=== PATIENT | female | born 1965 | race Caucasian/White ===

== ENCOUNTER 2018-02-19 21:02 | Inpatient (IN) | payer SELFPAY ==
[~2018-02-19] VITALS: Ht 167.6 cm; Wt 81.3 kg
[~2018-02-19 21:02] MED LIST: FAMOTIDINE (10MG/ML) 2ML VL IV ONE; methylPREDNISolone SOD SUCC 125 MG/2 ML VL ONE
[2018-02-19] MEDS ORDERED: SUCCINYLCHOLINE CHLORIDE 20 MG/ML 10ML VIAL IV ONE ×2 (21:10→21:15)
[2018-02-19] MEDS ORDERED: ETOMIDATE (2MG/ML) 20ML VIAL IV ONE ×2 (21:10→21:15)
[2018-02-19] MEDS ORDERED: FAMOTIDINE (10MG/ML) 2ML VL IV ONE (21:15)
[2018-02-19] MEDS ORDERED: methylPREDNISolone SOD SUCC 125 MG/2 ML VL IV ONE (21:15)
[2018-02-19] MEDS: MIDAZOLAM DRIP 50 mg/50mL 50 ML IV ONE ×2 (21:17→21:27)
[2018-02-19] MEDS: MIDAZOLAM DRIP 50 mg/50mL 50 ML IV SCH (21:18)
[2018-02-19 21:20] VITALS: BP 126/71
[2018-02-19] MEDS ORDERED: EPINEPHrine HCL 1 MG/1 ML AMP SC ONE (21:30)
[2018-02-19 22:04] LABS: Lactic Acid w/Reflex 7.5 mmol/L (0.4-2.0)
[2018-02-19 22:17] LABS: Hematocrit 40.6 % (36.0-46.0); Hemoglobin 13.5 g/dL (12.2-16.2); Mean Corpuscular Hemoglobin 32.1 pg (28.0-32.0); Mean Corpuscular Hgb Conc. 33.3 g/dL (32.0-36.0); Mean Corpuscular Volume 96.4 fL (80.0-100.0); Platelet Count (auto) 267 10^3/uL (140-450); Red Blood Cells 4.22 10^6/uL (4.0-5.20); Red Cell Distribution Width 13.5 % (11.8-14.3); White Blood Cell 12.7 10^3/uL (4.4-10.8)
[2018-02-19 22:20] VITALS: BP 90/52
[2018-02-19 22:24] LABS: INR 0.94 (0.9-1.15); Partial Thromboplastin Time 24.4 sec (23.78-33.04); Prothrombin Time 10.1 sec (9.27-12.13)
[2018-02-19 22:26] LABS: Alcohol, Urine < 3.0 mg/dL (0-5); Amphetamine Screen, Urine NEGATIVE (NEGATIVE); Barbiturate Scree,Urine NEGATIVE (NEGATIVE); Benzodiazephine Screen, Urine NEGATIVE (NEGATIVE); Cannabinoid Screen, Urine POSITIVE (NEGATIVE); Cocaine Screen, Urine NEGATIVE (NEGATIVE); Opiate Scree,Urine NEGATIVE (NEGATIVE); Phencyclidine Screen, Urine NEGATIVE (NEGATIVE)
[2018-02-19 22:26] LABS: Anion Gap 17 (5-15); Blood Urea Nitrogen 31 mg/dL (7-18); Calcium 8.7 mg/dL (8.5-10.1); Carbon Dioxide 17 mmol/L (21-32); Chloride 104 mmol/L (98-107); Glucose 344 mg/dL (74-106); Potassium 3.2 mmol/L (3.5-5.1); Sodium 138 mmol/L (136-145)
[2018-02-19 22:27] LABS: Urine Bacteria FEW /hpf (None Seen); Urine Blood 1+ /uL (Negative); Urine Hyaline Cast MOD /lpf (0 - 2); Urine Mucus FEW (None Seen); Urine Specific Gravity 1.013 (1.001-1.035); Urine WBC 14 /hpf (0 - 5)
[2018-02-19 22:30] LABS: Band Neutrophils % (manual) 0; Basophils % (manual) 0 (0.0-2.0); Blast Cells 0; Metamyelocytes % 0; Promyelocytes % 0; Reactive Lymphocytes 0
[2018-02-19 22:31] LABS: Alanine Aminotransferase 42 U/L (13-56); Alkaline Phosphatase 94 U/L (45-117); Aspartate Aminotransferase 31 U/L (15-37); BUN/Creatinine Ratio 19.7; Bilirubin, Total 0.4 mg/dL (0.2-1.0); GFR African American 44 mL/min; GFR Non-African American 37 mL/min
[2018-02-19] MEDS ORDERED: SODIUM CHLORIDE 0.9% 1,000 ML IV ONE (22:45)
[2018-02-19] MEDS ORDERED: cefTRIAXone 1GM/50ML D5W 50 ML IV ONE (22:45)
[2018-02-19] MEDS ORDERED: POTASSIUM CHL 20MEQ/100ML 100 ML IV ONE (23:45)
[2018-02-20] VITALS (94 sets, daily range): BP systolic 78–142; BP diastolic 34–92
[2018-02-20 00:01] LABS: Eosinophils % (manual) 2 (0-7); Lymphocytes % (manual) 69 (10.0-50.0); Monocytes % (manual) 5 (0-12); Myelocytes % 2
[2018-02-20] MEDS: SODIUM CHLORIDE 0.9% 1,000 ML IV SCH ×2 (00:30→12:23)
[2018-02-20] MEDS ORDERED: DEXTROSE (50%) 50ML SYRG IV PRN (00:30)
[2018-02-20] MEDS: IPRATROPIUM BROM 0.5 MG/2.5ML INH SOL NEB SCH ×6 (02:07→22:25)
[2018-02-20] MEDS: ALBUTEROL SULF 2.5 MG/0.5ML(0.5%) NEB SOLN NEB SCH ×6 (02:07→22:25)
[2018-02-20 04:00] LABS: Basophils # (auto) 0 uL; Basophils % (auto) 0.1 % (0.0-2.0); Eosinophils # (auto) 0 uL; Eosinophils % (auto) 0.1 % (0.0-7.0); Hematocrit 35.9 % (36.0-46.0); Hemoglobin 12.4 g/dL (12.2-16.2); Lymphocytes # (auto) 0.5 uL; Lymphocytes % (auto) 6.7 % (10.0-50.0); Mean Corpuscular Hgb Conc. 34.6 g/dL (32.0-36.0); Mean Corpuscular Volume 92.4 fL (80.0-100.0); Monocytes # (auto) 0.2 uL; Monocytes % (auto) 2.4 % (0.0-12.0); Neutrophils # (auto) 6.3 uL; Neutrophils % (auto) 90.7 % (37.0-80.0); Platelet Count (auto) 179 10^3/uL (140-450); Red Blood Cells 3.89 10^6/uL (4.0-5.20); Red Cell Distribution Width 13.1 % (11.8-14.3); White Blood Cell 6.9 10^3/uL (4.4-10.8)
[2018-02-20 04:14] LABS: Calcium 7.7 mg/dL (8.5-10.1); Potassium 3.2 mmol/L (3.5-5.1)
[2018-02-20 04:18] LABS: BUN/Creatinine Ratio 34.2
[2018-02-20] MEDS ORDERED: SODIUM CHLORIDE 0.9% 1,000 ML IV ONE (04:30)
[2018-02-20] MEDS: fentaNYL Drip 2500mCg/250mlNS 250 ML IV SCH ×2 (04:41→22:42)
[2018-02-20] MEDS: methylPREDNISolone SOD SUCC 40 MG/ML VL IV SCH ×3 (05:47→21:54)
[2018-02-20] MEDS: MIDAZOLAM DRIP 50 mg/50mL 50 ML IV SCH ×4 (05:49→20:57)
[2018-02-20] MEDS: ACCU-CHEK COMFORT CURVE STRIP VI SCH ×4 (05:57→23:44)
[2018-02-20] MEDS: InsuLIN REG 1unit/0.01ml Soln (100units/ml) SC SCH ×4 (05:57→23:43)
[2018-02-20] MEDS ORDERED: ENOXAPARIN SOD 30 MG/0.3 ML SYRINGE SC SCH (10:00)
[2018-02-20] MEDS: PANTOPRAZOLE 40 MG/10 ML VIAL IV SCH (10:07)
[2018-02-20] MEDS: AZITHROMYCIN 500MG/ 250ML 250 ML IV SCH (10:08)
[2018-02-20] MEDS ORDERED: POTASSIUM EFFERVESENT TAB 25 MEQ GT ONE (11:45)
[2018-02-20] MEDS ORDERED: SODIUM CHLORIDE 0.9% 500 ML IV ONE (13:00)
[2018-02-20] MEDS: NOREPINEPHRINE 8 MG/250ML KIT 250 ML IV SCH (13:19)
[2018-02-20] MEDS: cefTRIAXone 1GM/50ML D5W 50 ML IV SCH (20:56)
[2018-02-20] MEDS: POTASSIUM EFFERVESENT TAB 25 MEQ GT SCH (21:54)
[2018-02-20] MEDS: BUDESONIDE (INHALATION) 0.5 MG/2 ML NEB NEB SCH (22:25)
[2018-02-21] VITALS (83 sets, daily range): BP systolic 102–177; BP diastolic 43–96
[2018-02-21] MEDS: MIDAZOLAM DRIP 50 mg/50mL 50 ML IV SCH ×3 (01:03→10:17)
[2018-02-21] MEDS: ALBUTEROL SULF 2.5 MG/0.5ML(0.5%) NEB SOLN NEB SCH ×6 (02:06→22:32)
[2018-02-21] MEDS: IPRATROPIUM BROM 0.5 MG/2.5ML INH SOL NEB SCH ×6 (02:06→22:32)
[2018-02-21] MEDS: SODIUM CHLORIDE 0.9% 1,000 ML IV SCH ×2 (03:10→07:21)
[2018-02-21 04:07] LABS: Basophils # (auto) 0 uL; Basophils % (auto) 0.1 % (0.0-2.0); Eosinophils # (auto) 0 uL; Hematocrit 32.8 % (36.0-46.0); Hemoglobin 11.2 g/dL (12.2-16.2); Lymphocytes # (auto) 0.7 uL; Lymphocytes % (auto) 6.9 % (10.0-50.0); Mean Corpuscular Hemoglobin 32.1 pg (28.0-32.0); Mean Corpuscular Hgb Conc. 34.3 g/dL (32.0-36.0); Mean Corpuscular Volume 93.5 fL (80.0-100.0); Monocytes # (auto) 0.3 uL; Monocytes % (auto) 2.5 % (0.0-12.0); Neutrophils # (auto) 9.2 uL; Neutrophils % (auto) 90.5 % (37.0-80.0); Platelet Count (auto) 174 10^3/uL (140-450); Red Cell Distribution Width 13.7 % (11.8-14.3); White Blood Cell 10.2 10^3/uL (4.4-10.8)
[2018-02-21 04:22] LABS: BUN/Creatinine Ratio 26.3; Calcium 8.1 mg/dL (8.5-10.1); Potassium 4.1 mmol/L (3.5-5.1)
[2018-02-21] MEDS: InsuLIN REG 1unit/0.01ml Soln (100units/ml) SC SCH ×4 (06:00→23:43)
[2018-02-21] MEDS: BUDESONIDE (INHALATION) 0.5 MG/2 ML NEB NEB SCH ×2 (06:02→22:32)
[2018-02-21] MEDS: methylPREDNISolone SOD SUCC 40 MG/ML VL IV SCH ×3 (06:04→22:00)
[2018-02-21] MEDS: ACCU-CHEK COMFORT CURVE STRIP VI SCH ×4 (06:04→23:43)
[2018-02-21] MEDS: PANTOPRAZOLE 40 MG/10 ML VIAL IV SCH (10:03)
[2018-02-21] MEDS: ENOXAPARIN SOD 30 MG/0.3 ML SYRINGE SC SCH (10:04)
[2018-02-21] MEDS: AZITHROMYCIN 500MG/ 250ML 250 ML IV SCH (10:04)
[2018-02-21] MEDS: POTASSIUM EFFERVESENT TAB 25 MEQ GT SCH (10:04)
[2018-02-21] MEDS: NOREPINEPHRINE 8 MG/250ML KIT 250 ML IV SCH (13:00)
[2018-02-21] MEDS: ONDANSETRON HCL 4 MG/2 ML VIAL IV PRN ×2 (14:22→19:35)
[2018-02-21] MEDS: cefTRIAXone 1GM/50ML D5W 50 ML IV SCH (20:52)
[2018-02-22] VITALS (19 sets, daily range): BP systolic 102–145; BP diastolic 45–82
[2018-02-22] MEDS: ALBUTEROL SULF 2.5 MG/0.5ML(0.5%) NEB SOLN NEB SCH ×4 (02:14→19:14)
[2018-02-22] MEDS: IPRATROPIUM BROM 0.5 MG/2.5ML INH SOL NEB SCH ×4 (02:15→19:14)
[2018-02-22] MEDS: InsuLIN REG 1unit/0.01ml Soln (100units/ml) SC SCH (06:00)
[2018-02-22] MEDS: ACCU-CHEK COMFORT CURVE STRIP VI SCH ×3 (06:03→18:00)
[2018-02-22] MEDS: methylPREDNISolone SOD SUCC 40 MG/ML VL IV SCH (06:03)
[2018-02-22] MEDS: ONDANSETRON HCL 4 MG/2 ML VIAL IV PRN (06:04)
[2018-02-22] MEDS ORDERED: IPRATROPIUM BROM 0.5 MG/2.5ML INH SOL NEB PRN (08:30)
[2018-02-22] MEDS ORDERED: ALBUTEROL SULF 2.5 MG/0.5ML(0.5%) NEB SOLN NEB PRN (08:30)
[2018-02-22] MEDS: BUDESONIDE (INHALATION) 0.5 MG/2 ML NEB NEB SCH ×2 (10:00→19:14)
[2018-02-22] MEDS: PANTOPRAZOLE 40 MG TAB PO SCH (10:17)
[2018-02-22] MEDS: AMOXICILLIN/CLAVUL 875 MG TAB PO SCH ×2 (10:17→21:56)
[2018-02-22] MEDS: predniSONE 20 MG TAB PO SCH (10:17)
[2018-02-22] MEDS: ENOXAPARIN SOD 30 MG/0.3 ML SYRINGE SC SCH (10:22)
[2018-02-22] MEDS ORDERED: ENOXAPARIN SOD 40 MG/0.4 ML SYRINGE SC ONE (10:22)
[2018-02-23] MEDS: ACCU-CHEK COMFORT CURVE STRIP VI SCH ×3 (00:28→11:12)
[2018-02-23] MEDS: ALBUTEROL SULF 2.5 MG/0.5ML(0.5%) NEB SOLN NEB SCH ×3 (01:09→17:35)
[2018-02-23] MEDS: IPRATROPIUM BROM 0.5 MG/2.5ML INH SOL NEB SCH ×3 (01:09→17:35)
[2018-02-23 03:01] VITALS: BP 130/65
[2018-02-23 05:09] VITALS: BP 135/73
[2018-02-23] MEDS: ONDANSETRON HCL 4 MG/2 ML VIAL IV PRN ×2 (06:15→12:13)
[2018-02-23 09:00] VITALS: BP 104/49
[2018-02-23] MEDS: AMOXICILLIN/CLAVUL 875 MG TAB PO SCH (09:32)
[2018-02-23] MEDS: PANTOPRAZOLE 40 MG TAB PO SCH (09:32)
[2018-02-23] MEDS: predniSONE 20 MG TAB PO SCH (09:33)
[2018-02-23] MEDS: ENOXAPARIN SOD 30 MG/0.3 ML SYRINGE SC SCH (09:33)
[2018-02-23] MEDS ORDERED: PANT40T PO (10:06)
[2018-02-23] MEDS ORDERED: AMOX-277 PO (10:06)
[2018-02-23] MEDS ORDERED: DOCUSATE SOD 100 MG CAP PO PRN (10:15)
[2018-02-23 13:00] VITALS: BP 148/77
[2018-02-23] MEDS: METOCLOPRAMIDE HCL 5MG/ml INJ 2ml VIAL IV SCH (15:10)
[2018-02-23 17:00] VITALS: BP 111/68
[2018-02-23] MEDS: BUDESONIDE (INHALATION) 0.5 MG/2 ML NEB NEB SCH (17:35)
[2018-02-23 22:00] VITALS: BP 130/76
[2018-02-24] MEDS: METOCLOPRAMIDE HCL 5MG/ml INJ 2ml VIAL IV SCH ×4 (00:01→21:52)
[2018-02-24] MEDS: ACETAMINOPHEN 500 MG TAB PO PRN (00:30)
[2018-02-24] MEDS: IPRATROPIUM BROM 0.5 MG/2.5ML INH SOL NEB SCH ×4 (00:32→18:59)
[2018-02-24] MEDS: ALBUTEROL SULF 2.5 MG/0.5ML(0.5%) NEB SOLN NEB SCH ×4 (00:33→18:59)
[2018-02-24 05:00] VITALS: BP 129/84
[2018-02-24] MEDS: BUDESONIDE (INHALATION) 0.5 MG/2 ML NEB NEB SCH ×2 (06:19→18:59)
[2018-02-24 09:00] VITALS: BP 103/60
[2018-02-24] MEDS: predniSONE 20 MG TAB PO SCH (09:18)
[2018-02-24] MEDS: AMOXICILLIN/CLAVUL 875 MG TAB PO SCH ×3 (09:18→21:52)
[2018-02-24] MEDS: PANTOPRAZOLE 40 MG TAB PO SCH (09:18)
[2018-02-24] MEDS: ENOXAPARIN SOD 30 MG/0.3 ML SYRINGE SC SCH (09:19)
[2018-02-24 13:00] VITALS: BP 130/32
[2018-02-24 18:00] VITALS: BP 137/99
[2018-02-24] MEDS: MONTELUKAST SODIUM 10 MG TAB PO SCH (21:53)
[2018-02-24 21:59] VITALS: BP 131/59
[2018-02-25] MEDS: ALBUTEROL SULF 2.5 MG/0.5ML(0.5%) NEB SOLN NEB SCH ×5 (00:35→18:49)
[2018-02-25] MEDS: IPRATROPIUM BROM 0.5 MG/2.5ML INH SOL NEB SCH ×5 (00:35→18:48)
[2018-02-25 05:11] VITALS: BP 111/58
[2018-02-25] MEDS: METOCLOPRAMIDE HCL 5MG/ml INJ 2ml VIAL IV SCH ×3 (06:02→22:10)
[2018-02-25] MEDS: BUDESONIDE (INHALATION) 0.5 MG/2 ML NEB NEB SCH ×2 (06:23→18:49)
[2018-02-25 08:54] VITALS: BP 122/65
[2018-02-25] MEDS: predniSONE 20 MG TAB PO SCH (09:57)
[2018-02-25] MEDS: AMOXICILLIN/CLAVUL 875 MG TAB PO SCH ×2 (09:57→22:10)
[2018-02-25] MEDS: PANTOPRAZOLE 40 MG TAB PO SCH (09:57)
[2018-02-25] MEDS: ENOXAPARIN SOD 30 MG/0.3 ML SYRINGE SC SCH (09:58)
[2018-02-25] MEDS ORDERED: MONT10TA23 PO (10:00)
[2018-02-25 13:00] VITALS: BP 110/77
[2018-02-25 17:00] VITALS: BP 120/65
[2018-02-25 22:00] VITALS: BP 125/45
[2018-02-25] MEDS: MONTELUKAST SODIUM 10 MG TAB PO SCH (22:11)
[2018-02-26] MEDS: ACETAMINOPHEN 500 MG TAB PO PRN (04:57)
[2018-02-26 05:00] VITALS: BP 106/54
[2018-02-26] MEDS: IPRATROPIUM BROM 0.5 MG/2.5ML INH SOL NEB SCH ×2 (06:16)
[2018-02-26] MEDS: BUDESONIDE (INHALATION) 0.5 MG/2 ML NEB NEB SCH (06:16)
[2018-02-26] MEDS: ALBUTEROL SULF 2.5 MG/0.5ML(0.5%) NEB SOLN NEB SCH ×2 (06:16)
[2018-02-26] MEDS: METOCLOPRAMIDE HCL 5MG/ml INJ 2ml VIAL IV SCH (06:26)
[2018-02-26 08:50] VITALS: BP 107/56
[2018-02-26 09:00] VITALS: BP 107/56
[2018-02-26] MEDS: predniSONE 20 MG TAB PO SCH (09:15)
[2018-02-26] MEDS: PANTOPRAZOLE 40 MG TAB PO SCH (09:15)
[2018-02-26] MEDS: ENOXAPARIN SOD 30 MG/0.3 ML SYRINGE SC SCH (09:16)
[2018-02-26] MEDS: AMOXICILLIN/CLAVUL 875 MG TAB PO SCH (09:23)
== END 2018-02-26 10:50 | disposition home or self-care (01) | DRG 871 ==
LOC: ER 21:02 → EDBD 21:02 → OVERFLOW 02-20 00:22 → ICU WEST 02-20 00:53 → EAST 02-22 17:08
PROVIDERS: ADMIT Nurse Practitioner Family; ATTEND Internal Medicine
PROC: 5A1945Z Respiratory Ventilation, 24-96 Consecutive Hours (ICD-10-PCS; principal; 2018-02-20)
PROC: 0BH17EZ Insertion of Endotracheal Airway into Trachea, Via Natural or Artificial Opening (ICD-10-PCS; 2018-02-20)
DX: A41.9 Sepsis, unspecified organism (principal); J96.00 Acute respiratory failure, unspecified whether with hypoxia or hypercapnia; N17.0 Acute kidney failure with tubular necrosis; J45.902 Unspecified asthma with status asthmaticus; N39.0 Urinary tract infection, site not specified; E11.65 Type 2 diabetes mellitus with hyperglycemia; E87.6 Hypokalemia; T38.0X5A Adverse effect of glucocorticoids and synthetic analogues, initial encounter; T78.3XXA Angioneurotic edema, initial encounter; Y92.89 Other specified places as the place of occurrence of the external cause
CPT/HCPCS: 36415; 36600; 70450; 71045; 74176; 80048; 80053; 80307; 81001; 82805; 82962; 83036; 83605; 83735; 83880; 84484; 84702; 85007; 85025; 85027; 85610; 85730; 87040; 87070; 87081; 87086; 87205; 93005; 94002; 94003; 94640; 96361; 96365; 96375; A4565; A6257; C9113; G0378; J0330; J0696; J1815; J2250; J2405; J3480; J3490